=== PATIENT | female | born 1965 | race American Indian/Alaskan Native ===

== ENCOUNTER 2021-01-19 21:30 | Emergency (ER) | payer OTHER ==
[2021-01-19] MEDS ORDERED: BUTALB/ACETAMINOPHEN/CAFFEINE TAB PO ONE (21:47)
[2021-01-19] MEDS ORDERED: SODIUM CHLORIDE 0.9% 1000 ML 1,000 ML IV ONE (21:47)
[2021-01-19] MEDS ORDERED: METOCLOPRAMIDE 10 MG/2 ML INJ IV ONE (21:47)
[2021-01-19] MEDS ORDERED: diphenhydrAMINE 50 MG/ML VIAL IV ONE (21:47)
--- NOTE | 2021-01-19 21:53 | Emergency Department Report ---
ED Headache HPI - General Chief Complaint: Headache Stated Complaint: HEADACHE Source: patient Exam Limitations: no limitations - History of Present Illness Initial Comments: Patient is a 55-year-old -[place] female with a history of chronic recurrent rhinitis who presents to the ED with complaint of acute onset persistent nasal and sinus congestion, frontal sinus pressure and severe frontal headache for the last 3 days. Patient states that the headache is worsened in the last 24 hours such that she has not been able to function well at work because of worsening pain. Patient states that she has been taking [id number] medications with no relief. Patient denies dizziness, syncope, chest pain or shortness of breath, neck pain, fever, chills, sore throat, change in vision, neck pain, nausea and vomiting, hemoptysis, palpitations or lightheadedness. Timing/Duration: increasing, waxing and waning, other (3 days) Quality: severe, sharp Head Injury Location: frontal Recent Head Trauma: no recent headache/trauma, frequent headaches Modifying Factors: worse with: cold therapy, exposure to light, immobilization, medication, movement Associated Symptoms: denies symptoms, facial pain, nausea/vomiting, sinus infection. denies: confusion, loss of consciousness, nasal congestion, nasal drainage, numbness in legs/feet, seizures, stiff neck, vision changes, other Allergies/Adverse Reactions: Allergies codeine Allergy (Verified 11/15/12 22:00) Itching Home Medications: Ambulatory Orders Hydrocodone Bit/Acetaminophen [Lortab 5-500 Tablet] 1 each PO Q8HR PRN #20 tablet 11/16/12 Ibuprofen [Motrin 800 MG tab] 800 mg PO TID PRN #60 tablet 11/16/12 Metaxalone [Skelaxin] 800 mg PO TID #30 tablet 02/13/13 Amoxicillin [Trimox CAP] 500 mg PO Q8H #30 capsule 01/20/21 Butalb/Acetamin/Caff 50-325-40 [Fioricet 50-325-40] 1 - 2 tab PO Q6HR PRN #15 tab 01/20/21 Cetirizine HCl [Zyrtec 10mg tab] 10 mg PO DAILY #30 tablet 01/20/21 Ibuprofen [Motrin] 600 mg PO Q8H PRN #30 tablet 01/20/21 ED Review of Systems ROS: Stated complaint: HEADACHE Other details as noted in HPI Constitutional: denies: chills, fever Eyes: denies: eye pain, eye discharge, vision change ENT: denies: ear pain, throat pain Respiratory: denies: cough, shortness of breath, wheezing Cardiovascular: denies: chest pain, palpitations Endocrine: no symptoms reported Gastrointestinal: denies: abdominal pain, nausea, vomiting, diarrhea Genitourinary: denies: urgency, dysuria, discharge Musculoskeletal: denies: back pain, joint swelling, arthralgia Skin: denies: rash, lesions Neurological: headache. denies: weakness, paresthesias Psychiatric: denies: anxiety, depression Hematological/Lymphatic: denies: easy bleeding, easy bruising ED Past Medical Hx - Past Medical History Previous Medical History?: Yes Additional medical history: ALLERGIES - Surgical History Past Surgical History?: Yes Additional Surgical History: tubal ligation - Social History Smoking Status: Never Smoker Substance Use Type: None - Medications Home Medications: Home Medications Medication Instructions Recorded Confirmed Last Taken Type Hydrocodone Bit/Acetaminophen 1 each PO Q8HR PRN #20 tablet 11/16/12 Unknown Rx [Lortab 5-500 Tablet] Ibuprofen [Motrin 800 MG tab] 800 mg PO TID PRN #60 tablet 11/16/12 Unknown Rx Metaxalone [Skelaxin] 800 mg PO TID #30 tablet 02/13/13 Unknown Rx Amoxicillin [Trimox CAP] 500 mg PO Q8H #30 capsule 01/20/21 Unknown Rx Butalb/Acetamin/Caff 50-325-40 1 - 2 tab PO Q6HR PRN #15 tab 01/20/21 Unknown Rx [Fioricet 50-325-40] Cetirizine HCl [Zyrtec 10mg tab] 10 mg PO DAILY #30 tablet 01/20/21 Unknown Rx Ibuprofen [Motrin] 600 mg PO Q8H PRN #30 tablet 01/20/21 Unknown Rx ED Physical Exam - General Limitations: No Limitations General appearance: alert, in no apparent distress - Head Head exam: Present: atraumatic, normocephalic, normal inspection - Eye Eye exam: Present: normal appearance, PERRL, EOMI Pupils: Present: normal accommodation - ENT ENT exam: Present: normal orophraynx, mucous membranes moist, TM's normal bilaterally, normal external ear exam, other (Palpable frontal sinus tenderness) - Neck Neck exam: Present: normal inspection, full ROM - Respiratory Respiratory exam: Present: normal lung sounds bilaterally. Absent: respiratory distress, wheezes, rales, stridor, chest wall tenderness, accessory muscle use, decreased breath sounds, prolonged expiratory - Cardiovascular Cardiovascular Exam: Present: normal rhythm, tachycardia, normal heart sounds. Absent: systolic murmur, diastolic murmur, rubs, gallop - GI/Abdominal GI/Abdominal exam: Present: soft, normal bowel sounds. Absent: distended, tenderness, guarding, rebound, hyperactive bowel sounds, hypoactive bowel sounds, organomegaly - Extremities Exam Extremities exam: Present: normal inspection, full ROM, normal capillary refill - Back Exam Back exam: Present: normal inspection, full ROM. Absent: tenderness, CVA tenderness (R), CVA tenderness (L), muscle spasm - Neurological Exam Neurological exam: Present: alert, oriented X3, CN II-XII intact, normal gait, reflexes normal - Psychiatric Psychiatric exam: Present: normal affect, normal mood, anxious - Skin Skin exam: Present: warm, dry, intact, normal color. Absent: rash ED Course Vital Signs 01/19/21 01/20/21 21:33 00:28 Temperature 98.1 F Pulse Rate 119 H 83 Respiratory 16 12 Rate Blood Pressure 150/91 Blood Pressure 124/79 [Left] O2 Sat by Pulse 97 100 Oximetry ED Medical Decision Making - Lab Data Result diagrams: 01/19/21 22:11 01/19/21 22:11 - Radiology Data [facility] [address] [place] [address] XRay Report Signed Patient: CARL CURRIE MR#: [id number] : 1965 Acct:[id number] Age/Sex: 55 / F ADM Date: 01/19/21 Loc: ED Attending Dr: Ordering Physician: KYLE MCKEON Date of Service: 01/19/21 Procedure(s): XR chest routine 2V Accession Number(s): [id number] cc: KYLE MCKEON Fluoro Time In Minutes: XR chest routine 2V INDICATION / CLINICAL INFORMATION: HEADACHE, TACHYCARDIC. COMPARISON: None available. FINDINGS: SUPPORT DEVICES: None. HEART /PULMONARY VASCULATURE: No significant abnormality. LUNGS / PLEURA: No significant pulmonary or pleural abnormality. No pneumothorax. ADDITIONAL FINDINGS: No significant additional findings. IMPRESSION: 1. No acute findings. Signer Name: Adrian New MD Signed: 01/19/2021 10:29 PM Workstation Name: [id number] Transcribed By: ARDEN Dictated By: ADRIAN NEW MD Electronically Authenticated By: ADRIAN NEW MD Signed Date/Time: 01/19/212228 DD/ 27 TD/TT: - Medical Decision Making This is a 55-year-old -[place] female with a history of chronic recurrent rhinitis who presents to the ED with complaint of acute onset per sistent nasal and sinus congestion, frontal sinus pressure and severe frontal headache for the last 3 days. Patient states that the headache is worsened in the last 24 hours such that she has not been able to function well at work because of worsening pain. Patient states that she has been taking [id number] medications with no relief. In the ED, patient is alert and oriented x3 and is not in any distress but anxious and tachycardic in triage. Patient was treated in the ED for headache and also given normal saline 1 L IV bolus x1. Lab test results were reviewed and are all nonactionable. On reevaluation, patient's headache resolved medications. Patient the history and physical exam findings, the patient symptoms are likely due to a sinus headache or frontal sinusitis. Patient was discharged home on medications and advised to follow-up with her primary care physician in 5 to 7 days for reevaluation. Patient is advised return to the ED immediately if symptoms get worse. - Differential Diagnosis migraine headache; sinus headache; dehydration; sinusitis Critical care attestation.: If time is entered above; I have spent that time in minutes in the direct care of this critically ill patient, excluding procedure time. ED Disposition Clinical Impression: Sinus headache Acute frontal sinusitis Qualifiers: Recurrence: non-recurrent Qualified Code(s): J01.10 - Acute frontal sinusitis, unspecified Disposition: 01 HOME / SELF CARE / HOMELESS Is pt being admited?: No Does the pt Need Aspirin: No Condition: Stable Instructions: Sinusitis, Adult, [id number], Upper Respiratory Infection, Adult, Qnvl-hp-[id number], Sinus Headache, [id number]-vg-[id number] Additional Instructions: All lab test results were reviewed and are all nonactionable. Your symptoms are likely due to a sinus headache caused by frontal sinusitis. Therefore take medication with food, drink plenty of fluids and follow-up with your primary care physician in 5 to 7 days for reevaluation. Return to the ED immediately if symptoms get worse. Prescriptions: Butalb/Acetamin/Caff 50-325-40 [Fioricet 50-325-40] 1 - 2 tab PO Q6HR PRN #15 tab PRN Reason: Headache Ibuprofen [Motrin] 600 mg PO Q8H PRN #30 tablet PRN Reason: Pain Amoxicillin [Trimox CAP] 500 mg PO Q8H #30 capsule Cetirizine HCl [Zyrtec 10mg tab] 10 mg PO DAILY #30 tablet Referrals: GABE BLANKENSHIP MD [Primary Care Provider] - 3-5 Days Forms: Work/School Release Form(ED) Time of Disposition: 00:12 Print Language: OCCITAN
--- NOTE | 2021-01-19 22:33 | XRay Report ---
XR chest routine 2V INDICATION / CLINICAL INFORMATION: HEADACHE, TACHYCARDIC. COMPARISON: None available. FINDINGS: SUPPORT DEVICES: None. HEART /PULMONARY VASCULATURE: No significant abnormality. LUNGS / PLEURA: No significant pulmonary or pleural abnormality. No pneumothorax. ADDITIONAL FINDINGS: No significant additional findings. IMPRESSION: 1. No acute findings. Signer Name: Martín New MD Signed: 01/19/2021 10:29 PM Workstation Name: [id number]
[2021-01-19 22:36] LABS: Basophils # (Auto) 0.1 K/mm3 (0.0-0.1); Basophils % (Auto) 0.8 % (0.0-1.8); Eosinophils # (Auto) 0.1 K/mm3 (0.0-0.4); Eosinophils % (Auto) 1.6 % (0.0-4.3); Hematocrit 41.7 % (30.3-42.9); Hemoglobin 13.7 gm/dl (10.1-14.3); Lymphocytes # (Auto) 3.8 K/mm3 (1.2-5.4); Lymphocytes % (Auto) 47.1 % (13.4-35.0); Mean Corpuscular HGB Conc 33 % (30-34); Mean Corpuscular Volume 88 fl (79-97); Monocytes # (Auto) 0.4 K/mm3 (0.0-0.8); Monocytes % (Auto) 5.5 % (0.0-7.3); Platelet Count 324 K/mm3 (140-440); Red Blood Count 4.75 M/mm3 (3.65-5.03); Red Cell Distribution Width 15.1 % (13.2-15.2)
[2021-01-19 22:50] LABS: Alanine Aminotransferase 26 units/L (7-56); Albumin 4.5 g/dL (3.9-5); Blood Urea Nitrogen 9 mg/dL (7-17); Calcium 10.1 mg/dL (8.4-10.2); Hemolysis Index 104
[2021-01-19 23:01] LABS: BUN/Creatinine Ratio 13
[2021-01-19 23:54] LABS: Bilirubin,Urine NEG (Negative); Blood,Urine NEG (Negative); Color,Urine Yellow (Yellow); Mucus,Urine FEW /HPF; Protein,Urine <15 mg/dL mg/dL (Negative); Urobilinogen,Urine < 2.0 mg/dL (<2.0)
[2021-01-20 00:33] VITALS: BP 124/79
== END 2021-01-20 00:37 | disposition home or self-care (01) ==
LOC: ED 21:30
DX: G44.89 Other headache syndrome (principal); J01.10 Acute frontal sinusitis, unspecified
CPT/HCPCS: 36415; 71046; 80053; 81001; 84443; 84484; 85025; 96361; 96374; 96375; 99284; J1200; J2765; J7030; Q0162